=== PATIENT | female | born 1980 | race Caucasian/White ===

== ENCOUNTER → 2018-04-13 | Outpatient (CLI) | payer MEDICAID, MEDICARE ==
[~2018-04-13] MED LIST: ACHD5005 PO; ALBU4TAB4 PO; ARIP5TAB20 PO; CETI10TA17 PO; CLON1TAB4 PO; DOCU100C37 PO; FENO134C PO; GABA600T2 PO; GABA800T2 PO; HYDR-34 PO; HYDR25TA4 PO; IBUP-1773 PO; IBUP-1780 PO; MECL-133 PO; METF500T5 PO; METH750T3 PO; MONT10TA24 PO; OMEP40CA36 PO; PRAZ1CAP2 PO; PROP10TA8 PO; RT-ALBUINH IH; SERT100T8 PO; SIME80TA16 PO; SIMV20TA3 PO; TIOT18CA2 IH; TRAZ-189 PO; VENL37.57 PO; VNL75T PO
--- NOTE | 2018-04-13 14:15 | Diagnostic Imaging Report ---
INDICATION: Bilateral breast pain and lumpiness. COMPARISON: No prior studies are available for comparison. TECHNIQUE: Bilateral 2D and 3D diagnostic mammography was performed with CAD. FINDINGS: Both breasts are heterogeneously dense, limiting the sensitivity of mammography. No mass or malignant microcalcifications are seen. The axillae are unremarkable bilaterally. IMPRESSION: No mammographic features suspicious for malignancy are identified. Even so, bilateral breast ultrasound is recommended due to bilateral breast lumps and pain. ACR BI-RADS Category 0: Incomplete. (Needs additional imaging evaluation). Result letter will be mailed to the patient. Note: At least 10% of breast cancer is not imaged by mammography. Dictated by: Dictated on workstation # [id number]
--- NOTE | 2018-04-13 14:18 | Diagnostic Imaging Report ---
INDICATION: Bilateral breast pain and lumps. COMPARISON: Correlation is made with the diagnostic mammogram from earlier this same day. TECHNIQUE: Sonographic interrogation of all four quadrants and retroareolar regions of the bilateral breasts was performed. FINDINGS: No sonographic abnormality is seen. No solid or cystic mass in either breast is identified. There are lymph nodes in the axillae bilaterally. A right axillary lymph node measures 3.3 x 1.4 cm. This does contain a fatty hilum. IMPRESSION: No sonographic abnormality is identified in either breast. Continued clinical followup is recommended. ACR BI-RADS Category 2: Benign findings. Dictated by: Dictated on workstation # [id number]
== END ==
LOC: RAD 12:17
PROVIDERS: ATTEND Nurse Practitioner Family
DX: N63.20 Unspecified lump in the left breast, unspecified quadrant (principal); N63.10 Unspecified lump in the right breast, unspecified quadrant
CPT/HCPCS: 77066